=== PATIENT | female | born 1955 | race Caucasian/White ===

== ENCOUNTER 2018-02-15 20:04 | Emergency (ER) | payer OTHER ==
[~2018-02-15 20:04] MED LIST: CARVEDILOL12.5 MG PO; HYDRODIURIL 2525 MG PO; LISINOPRIL40 MG PO; PROTONIX 40MG T40 MG PO
[2018-02-15 21:25] LABS: ABSOLUTE BASOPHIL COUNT 0 /CUMM (0.0-0.2); ABSOLUTE EOSINOPHIL COUNT 0.2 /CUMM (0.0-0.7); ABSOLUTE GRANULOCYTE CT 6.4 /CUMM (1.4-6.5); ABSOLUTE LYMPH COUNT 2.5 /CUMM (1.2-3.4); ABSOLUTE MONOCYTE COUNT 0.6 /CUMM (0.10-0.60); BASOPHIL % 0.4 % (0.0-2.0); EOSINOPHIL % 1.7 % (0-5); GRANULOCYTE % 66.1 % (42.2-75.2); MEAN CORPUSCULAR HGB 28.3 PG (27.0-31.0); MEAN CORPUSCULAR HGB CONC 33.7 G/DL (33.0-37.0); MEAN PLATELET VOLUME 7.3 FL (7.4-10.4); PLATELET COUNT 386 /CUMM (130-400); RBC DISTRIBUTION WIDTH 14.2 % (11.5-14.5); RED BLOOD CELL CT 4.76 /CUMM (4.20-5.40); WHITE BLOOD CELL COUNT 9.6 /CUMM (4.8-10.8)
--- NOTE | 2018-02-15 23:53 | RADIOLOGY REPORT ---
EXAMINATION: CHEST 2 VIEWS CLINICAL INFORMATION: Shortness of breath. Dyspnea. COMPARISON: March 28, 2012. TECHNIQUE: PA and lateral views of the chest were obtained. FINDINGS: The cardiac silhouette is not enlarged. The mediastinal and hilar contours are unremarkable. There are neither pleural effusions nor pneumothoraces. There are no consolidations. The lungs are hyperinflated. The osseous structures are stable. IMPRESSION: No evidence for acute disease.
--- NOTE | 2018-02-16 01:13 | ED DYSPNEA/ASTHMA COMPLAINT ---
History of Present Illness General Chief Complaint: General Adult Stated Complaint: "I FEEL LIKE I CANT BREATH FOR THE LAST TWO WEEKS" Source: patient, old records, Epic Exam Limitations: no limitations Vital Signs & Intake/Output Vital Signs & Intake/Output Vital Signs Date Time Temp Pulse Resp B/P B/P Pulse O2 O2 Flow FiO2 Mean Ox Delivery Rate 02/16 0119 97.8 101 16 132/70 97 Room Air 02/158 98 02/157 Room Air 02/15 2014 138/78 02/15 2011 98.8 110 20 97 Room Air ED Intake and Output 02/16 0000 02/15 1200 Intake Total Output Total Balance Patient 294 lb Weight Weight Reported by Patient Measurement Method Allergies Coded Allergies: NO KNOWN ALLERGIES (03/28/12) Reconcile Medications Carvedilol 12.5 MG TAB 1 TAB PO BID BP (Reported) Hydrochlorothiazide (Hydrodiuril 25 MG Tab) 25 MG TAB 1 TAB PO DAILY BP ( Reported) Lisinopril 40 MG TAB 1 TAB PO DAILY BP (Reported) Pantoprazole Sodium (Protonix) 40 MG TAB 40 MG PO BID GI (Reported) Triage Note: PT TO ED WITH C/O INTERMITTENT SOB AT REST X 2 WEEKS. STATES WORSE WHEN LYING FLAT. DENIES CP OR DIZZINESS. DENIES LEG SWELLING. DENIES COUGH OR FEVERS. Triage Nurses Notes Reviewed? yes Onset: 2 weeks Duration: week(s):, intermittent Timing: recent history Severity: moderate Activities at Onset: activity, rest, sleep Prior Episodes/Possible Cause: frequent episodes Modifying Factors: Improves With: rest. LMP (ages 10-50): post menopausal : No Patient currently breastfeeds: No HPI: 2 weeks prior to admission patient complains of episodic shortness of breath worse with exertion relieved with rest associated with anxiety. She reports 1 month prior to admission she had normal echocardiogram and stress test. She denies fever chills nausea vomiting diarrhea abdominal pain chest pain cough headache dysuria rash bleeding. She reports during this time she stopped CPAP because she thought it would make things worse. Past History Travel History Traveled to [place] past 21 day No Medical History Any Pertinent Medical History? see below for history Neurological: NONE EENT: NONE Cardiovascular: hypertension, hyperlipidemia Respiratory: NONE Gastrointestinal: GERD Hepatic: NONE Renal: NONE Musculoskeletal: NONE Psychiatric: NONE Endocrine: NONE Blood Disorders: NONE Cancer(s): breast cancer [employer]/Reproductive: NONE History of MRSA: No Surgical History Surgical History: LUMPECTOMY Psychosocial History Who do you live with Other (see notes) Services at Home None What is your primary language Kitt[place] Tobacco Use: Quit >30 days ago Family History Hx Contributory? No Review of Systems Review of Systems Constitutional: Reports: no symptoms. EENTM: Reports: no symptoms. Respiratory: Reports: see HPI, short of breath. Cardiovascular: Reports: no symptoms. GI: Reports: no symptoms. Genitourinary: Reports: no symptoms. Musculoskeletal: Reports: no symptoms. Skin: Reports: no symptoms. Neurological/Psychological: Reports: no symptoms. Hematologic/Endocrine: Reports: no symptoms. Immunologic/Allergic: Reports: no symptoms. All Other Systems: Reviewed and Negative Physical Exam Physical Exam General Appearance: well developed/nourished, alert, awake, anxious, mild distress Head: atraumatic, normal appearance Eyes: Bilateral: normal appearance, PERRL, EOMI. Ears, Nose, Throat: normal pharynx, normal ENT inspection, hearing grossly normal Neck: normal inspection, supple, full range of motion, no midline tenderness Respiratory: normal breath sounds, chest non-tender, no respiratory distress, quiet respiration, lungs clear Cardiovascular: regular rate/rhythm, normal peripheral pulses, norml femoral pulses equa Peripheral Pulses: 4+ carotid (R), 4+ carotid (L) Gastrointestinal: normal bowel sounds, soft, non-tender, no organomegaly Extremities: normal inspection, normal capillary refill, normal range of motion, no edema Neurologic/Psych: no motor/sensory deficits, awake, alert, oriented x 3, normal gait, normal mood/affect, french binding folder II-XII nml as tested Skin: intact, normal color, warm/dry Lymphatic: no anterior cervical justyn Core Measures ACS in differential dx? No CVA/TIA Diagnosis No Sepsis Present: No Sepsis Focused Exam Completed? No Progress Differential Diagnosis: asthma, bronchitis, CHF, COPD, pneumonia Plan of Care: Orders Procedure Date/time Status Add-on Test (ER Only) 02/15 2333 Active TROPONIN LEVEL 02/15 2119 Complete B-TYPE NATRIURETIC PEP (BNP) 02/15 2119 Complete COMPREHENSIVE METABOLIC PANEL 02/15 2045 Complete CBC WITHOUT DIFFERENTIAL 02/15 2045 Complete EKG 02/15 2014 Active Laboratory Tests 02/15/182118: Anion Gap 12, Estimated GFR 42 L, BUN/Creatinine Ratio 21.5, Glucose 98, Calcium 9.6, Total Bilirubin 0.7, AST 23, ALT 27, Alkaline Phosphatase 112, Troponin I < 0.01, Swm-G-Nrqvoyevzoy Pept 61.3, Total Protein 7.4, Albumin 4.3, Globulin 3.1, Albumin/Globulin Ratio 1.4, CBC w Diff NO MAN DIFF REQ, RBC 4.76, MCV 84.0, MCH 28.3, MCHC 33.7, RDW 14.2, MPV 7.3 L, Gran % 66.1, Lymphocytes % 26.0, Monocytes % 5.8, Eosinophils % 1.7, Basophils % 0.4, Absolute Granulocytes 6.4, Absolute Lymphocytes 2.5, Absolute Monocytes 0.6, Absolute Eosinophils 0.2, Absolute Basophils 0 Diagnostic Imaging: Viewed by Me: Radiology Read. Discussed w/RAD: Radiology Read. CXR Impression: No evidence for acute disease. Initial ED EKG: normal axis, normal intervals, normal p-waves, normal QRS complex, normal sinus rhythm, no ST T wave changes Prior EKG: unchanged Departure Departure Time of Disposition: 111 Disposition: HOME OR SELF CARE Condition: Stable Clinical Impression Primary Impression: Dyspnea and respiratory abnormalities Referrals: Kary BAHENA,Tia Ramos (PCP/Family) Additional Instructions: Wear your cpap at night as prescribed. Departure Forms: Customer Survey General Discharge Information Critical Care Note Critical Care Note Critical Care Time: non-applicable
[2018-02-16 01:19] VITALS: BP 132/70
== END 2018-02-16 01:18 ==
LOC: ERH 20:04
PROVIDERS: Emergency Medicine
DX: R06.00 Dyspnea, unspecified (principal); R06.9 Unspecified abnormalities of breathing
CPT/HCPCS: 1263; 71046; 93005; 93010